=== PATIENT | female | born 1970 ===

== ENCOUNTER 2018-10-19 12:01 | Outpatient (REF) | payer OTHER, SELFPAY ==
[2018-10-19 22:21] LABS: TSH 4.32 uIU/mL (0.358-3.74)
[2018-10-21 10:00] LABS: HIV-1/2 Ag & Ab Screen Negative (NEGAT)
[2018-10-22 10:38] LABS: Chlamydia Result Negative; GC Result Negative; Specimen Description URINE
[2018-10-22 23:35] LABS: C.trach, Misc, Amplified RNA Negative (Negative); N.gonorr, Misc, Amplified RNA Negative (Negative); SOURCE: THROAT
== END 2018-10-19 12:21 ==
LOC: NCHCN 12:01
PROVIDERS: PCP Nurse Practitioner Family; Visit Provider Registered Nurse
DX: Z00.00 Encounter for general adult medical examination without abnormal findings (principal); R63.5 Abnormal weight gain; Z11.3 Encounter for screening for infections with a predominantly sexual mode of transmission; Z11.4 Encounter for screening for human immunodeficiency virus [HIV]
CPT/HCPCS: 87389; 87491; 87591; 84443

== ENCOUNTER 2019-06-30 21:32 | Outpatient (REF) | payer OTHER, SELFPAY ==
[2019-06-30 21:57] LABS: Hemoglobin A1C 5.6 % (4.5-6.2)
[2019-06-30 22:05] LABS: Anion Gap 10.5 mmol/L (3-11); BUN 15 mg/dL (7-18); CO2 27.5 mmol/L (21.0-32.0); CREATININE 0.81 mg/dL (0.55-1.02); Calcium 9.5 mg/dL (8.5-10.1); Calculated LDL 166 mg/dL; Chloride 102 mmol/L (98-107); Cholesterol 264 mg/dL (50-200); Glucose 102 mg/dL (70-100); HDL Cholesterol 49 mg/dL (40-60); Potassium 4.6 mmol/L (3.5-5.1); Sodium 140 mmol/L (136-145); TSH (W/Ref FT4) 2.97 uIU/mL (0.36-3.74); Triglyceride 249 mg/dL (30-150)
== END 2019-06-30 21:52 ==
LOC: NCHCN 21:32
PROVIDERS: PCP Nurse Practitioner Family; Visit Provider Family Medicine
DX: E78.2 Mixed hyperlipidemia (principal); E04.9 Nontoxic goiter, unspecified; R73.9 Hyperglycemia, unspecified
CPT/HCPCS: 80048; 80061; 83036; 84443

== ENCOUNTER 2020-12-01 16:00 | Outpatient (REF) | payer OTHER, SELFPAY ==
[2020-12-01 13:48] LABS: Hemoglobin A1C 5.6 % (<5.7)
[2020-12-01 14:11] LABS: Calculated LDL 216 mg/dL (<100); Cholesterol 316 mg/dL (<200); HDL Cholesterol 54 mg/dL (40-60); Triglyceride 232 mg/dL (<150)
[2020-12-04 09:44] LABS: Hepatitis C Ab w Rflx HCV PCR Negative (Negative)
== END 2020-12-01 16:01 | disposition home or self-care (01) ==
LOC: NCHCN 16:00
PROVIDERS: PCP Nurse Practitioner Family; Visit Provider Registered Nurse
DX: Z00.00 Encounter for general adult medical examination without abnormal findings (principal); E78.2 Mixed hyperlipidemia; R63.5 Abnormal weight gain; R79.89 Other specified abnormal findings of blood chemistry
CPT/HCPCS: 80061; 86803; 83036

== ENCOUNTER 2021-07-26 17:48 | Outpatient (REF) | payer OTHER, SELFPAY ==
[2021-07-26 22:18] LABS: Abs Immature Grans 0.02 10^3/uL (0.0-0.06); Absolute Basophil Count 0.12 10^3/uL (0.0-0.2); Absolute Eosinophil Count 0.27 10^3/uL (0.0-0.7); Absolute Lymphocyte Count 1.85 10^3/uL (1.2-3.4); Absolute Monocyte Count 0.56 10^3/uL (0.1-0.8); Absolute Neutrophil Count 3.84 10^3/uL (1.2-6.7); Basophils % 1.8; Eosinophils % 4.1; HCT 43.1 % (36.0-46.0); HGB 14.3 g/dL (11.2-15.7); Immature Grans % 0.3; Lymphocytes % 27.8; MCH 29.5 pg (27.0-33.0); MCHC 33.2 % (32.0-36.0); MCV 88.9 fL (80-95); Monocytes % 8.4; Neutrophils % 57.6; Nucleated RBC 0 %; Platelet Count 329 10^3/uL (130-400); RBC 4.85 10^6/uL (3.93-5.22); RDW 12.3 % (11.7-14.6); RDW-SD 40.2 fL; WBC 6.66 10^3/uL (4.4-10.8)
[2021-07-26 22:46] LABS: ALT 52 U/L (14-59); AST 28 U/L (15-37); Alkaline Phosphatase 63 U/L (46-116); Anion Gap 6.8 mmol/L (3-11); BUN 14 mg/dL (7-18); Bilirubin, Total 0.3 mg/dL (0.2-1.0); C-Reactive Protein 0.54 mg/dL (0.0-0.3); CO2 29.2 mmol/L (21.0-32.0); Calcium 9.2 mg/dL (8.5-10.1); Chloride 102 mmol/L (98-107); Estimated GFR 58.22 (mL/min/1.73m2); Glucose 94 mg/dL (74-106); Potassium 4.7 mmol/L (3.5-5.1); Sodium 138 mmol/L (136-145); TSH (W/Ref FT4) 2.21 uIU/mL (0.36-3.74); Total Protein 7.7 g/dL (6.4-8.2)
[2021-07-30 09:12] LABS: Cyclic Citrullinated Peptide <2.5 U/mL (<5.0)
[2021-07-31 14:29] LABS: ANA Interpretation Positive (Negative); ANA Titer Pattern 1:160 Homogeneous
== END 2021-07-26 17:49 | disposition home or self-care (01) ==
LOC: NCHCN 17:48
PROVIDERS: PCP Nurse Practitioner Family; Visit Provider Family Medicine
DX: R22.33 Localized swelling, mass and lump, upper limb, bilateral (principal); R63.5 Abnormal weight gain
CPT/HCPCS: 80053; 86200; 84443; 85025; 86038; 86140

== ENCOUNTER 2021-08-03 08:27 | Outpatient (REF) | payer OTHER, SELFPAY ==
[2021-08-07 09:15] LABS: dsDNA Ab, IgG <12.3 IU/mL (<30.0)
== END 2021-08-03 08:28 | disposition home or self-care (01) ==
LOC: NCHCN 08:27
PROVIDERS: PCP Nurse Practitioner Family; Visit Provider Family Medicine
DX: R76.0 Raised antibody titer (principal); R79.82 Elevated C-reactive protein (CRP)
CPT/HCPCS: 86225

== ENCOUNTER 2022-12-20 14:26 | Outpatient (REF) | payer OTHER, SELFPAY ==
--- NOTE | 2022-12-20 13:30 | PAPFT_PTH ---
PATIENT: Elinor Murray LOC: [facility]#:[id number] AGE/SX: 52/F ROOM: RE12/20/[address]: Verito Sheehan : 1970 BED: DIS: 12/20/2022 SPEC #: [id number] RECD: 12/23/22 12:57 STATUS: JUAN REQ #: [id number] LALIT: 12/20/22 13:[address]: Verito Sheehan DEPT: [facility] Cytology RECD BY: Charo Frank ENTERED: 12/23/22 12:57 SP TYPE: PAPFT OTHR DR: Jeanine Vail Tissues: 1 - CX/ENDOCX FOR PAP SMEARS Procedures: PAP THIN PREP/[facility] Screening HPV DNA PROBE Comments: [id number]
== END 2022-12-20 14:27 | disposition home or self-care (01) ==
LOC: NCHCN 14:26
PROVIDERS: PCP Nurse Practitioner Family; Visit Provider Registered Nurse
DX: Z12.4 Encounter for screening for malignant neoplasm of cervix (principal); Z11.51 Encounter for screening for human papillomavirus (HPV); Z00.00 Encounter for general adult medical examination without abnormal findings
CPT/HCPCS: 88142; 87624

== ENCOUNTER 2023-12-24 11:18 | Outpatient (REF) | payer OTHER, SELFPAY ==
[2023-12-24 15:29] LABS: Anion Gap 8.4 mmol/L (3-11); BUN 16 mg/dL (7-18); CO2 29.6 mmol/L (21.0-32.0); CREATININE 0.9 mg/dL (0.55-1.02); Calcium 9.7 mg/dL (8.5-10.1); Calculated LDL 217 mg/dL (<100); Chloride 102 mmol/L (98-107); Cholesterol 301 mg/dL (<200); Estimated GFR 75.97 (mL/min/1.73m2); Glucose 127 mg/dL (74-106); HDL Cholesterol 62 mg/dL (40-60); Potassium 4.7 mmol/L (3.5-5.1); Sodium 140 mmol/L (136-145); TSH (W/Ref FT4) 3.49 uIU/mL (0.36-3.74); Triglyceride 113 mg/dL (<150)
== END 2023-12-24 11:19 | disposition home or self-care (01) ==
LOC: NCHCN 11:18
PROVIDERS: PCP Nurse Practitioner Family; Visit Provider Family Medicine
DX: Z00.00 Encounter for general adult medical examination without abnormal findings (principal)
CPT/HCPCS: 80048; 80061; 84443

== ENCOUNTER 2024-12-28 11:37 | Outpatient (REF) | payer OTHER, SELFPAY ==
[2024-12-28 15:37] LABS: ALT 44 U/L (14-59); AST 24 U/L (15-37); Albumin 3.9 g/dL (3.4-5.0); Alkaline Phosphatase 73 U/L (46-116); Anion Gap 4.5 mmol/L (3-11); BUN 20 mg/dL (7-18); Bilirubin, Total 0.2 mg/dL (0.2-1.0); CO2 30.5 mmol/L (21.0-32.0); CREATININE 0.7 mg/dL (0.55-1.02); Calcium 9.1 mg/dL (8.5-10.1); Chloride 105 mmol/L (98-107); Estimated GFR 102.07 (mL/min/1.73m2); Glucose 115 mg/dL (74-106); Potassium 5.1 mmol/L (3.5-5.1); Sodium 140 mmol/L (136-145); TSH (W/Ref FT4) 2.96 uIU/mL (0.36-3.74); Total Protein 7.7 g/dL (6.4-8.2)
[2024-12-28 16:58] LABS: Hemoglobin A1C 5.8 % (<5.7)
== END 2024-12-28 11:38 | disposition home or self-care (01) ==
LOC: NCHCN 11:37
PROVIDERS: Visit Provider Family Medicine
DX: Z00.00 Encounter for general adult medical examination without abnormal findings (principal)
CPT/HCPCS: 80053; 83036; 84443